=== PATIENT | male | born 1955 | race Caucasian/White ===

== ENCOUNTER 2016-10-15 12:45 | Emergency (ER) | payer OTHER ==
[~2016-10-15] VITALS: Ht 175.3 cm; Wt 100.5 kg
[2016-10-15 12:50] VITALS: Ht 175.3 cm; Wt 100.5 kg
[2016-10-15] MEDS ORDERED: TAMS-14 PO (13:19)
[2016-10-15] MEDS ORDERED: CIPR500T4 PO (13:19)
[2016-10-15] MEDS ORDERED: CIPROFLOXACIN 500 MG TAB PO ONE (13:30)
[2016-10-15 14:11] LABS: ADD UMIC YES; UR ASCORBIC ACID NEGATIVE (NEGATIVE); UR BACTERIA FEW /HPF (NONE SEEN); UR BILIRUBIN (Dip) NEGATIVE (NEGATIVE); UR BLOOD (Dip) 2+ mg/dL (NEGATIVE); UR CLARITY SLIGHTLY CLOUDY (CLEAR); UR COLOR RED (YELLOW); UR GLUCOSE (Dip) NEGATIVE (NEGATIVE); UR KETONES (Dip) NEGATIVE (NEGATIVE); UR LEUKOCYTE ESTERASE (Dip) NEGATIVE Leu/ul (NEGATIVE); UR NITRITE (Dip) NEGATIVE (NEGATIVE); UR RBC 73 /HPF (0-5); UR TOTAL PROTEIN (Dip) 2+ mg/dl (NEGATIVE); UR UROBILINOGEN (Dip) NEGATIVE (NEGATIVE); UR WBC CLUMPS FEW /HPF (NONE SEEN)
--- NOTE | 2016-10-15 14:21 | ERD ---
ER Documentation Chief Complaint Date/Time DATE: 10/15/16 TIME: 14:19 Chief Complaint urinary retention , blood in urine with abd pain since yesterday HPI Patient is a 61-year-old male with no medical problems who presents with blood in his urine and difficulty with urination. The patient says "I cannot pee". He said that he noticed blood in his urine on Saturday and then last night he could not have a urination. He was unable to urinate today either and feels like his bladder is full. He is having pain over his bladder. He has no fevers. He tried "a pill" which he believes was Flomax that he got from a friend. Upon review of old medical records this is the patient's first visit to the emergency department. He goes to a local clinic for his care. ROS All systems reviewed and are negative except as per history of present illness. Medications Home Meds Active Scripts Ciprofloxacin Hcl* (Ciprofloxacin Hcl*) 500 Mg Tablet, 500 MG PO BID for 7 Days , TAB Prov:LOUIE CHANG MD 10/15/16 Tamsulosin Hcl* (Flomax*) 0.4 Mg Cap.er.24h, 0.4 MG PO QPM, #30 CAP Prov:LOUIE CHANG MD 10/15/16 PMhx/Soc Medical and Surgical Hx: pt denies Medical Hx, pt denies Surgical Hx Hx Alcohol Use: No Hx Substance Use: No Hx Tobacco Use: No Smoking Status: Never smoker FmHx Family History: No diabetes Physical Exam Vitals Vital Signs Date Time Temp Pulse Resp B/P Pulse Ox O2 Delivery O2 Flow Rate FiO2 10/15/16 12:50 98.1 80 18 161/90 98 Physical Exam Const: Moderate distress secondary to pain. Head: Atraumatic Eyes: Normal Conjunctiva ENT: Normal External Ears, Nose and Mouth. Neck: Full range of motion..~ No meningismus. Resp: Clear to auscultation bilaterally Cardio: Regular rate and rhythm, no murmurs Abd: Soft, tenderness over the bladder with fullness Skin: No petechiae or rashes Back: No midline or flank tenderness Ext: No cyanosis, or edema Neur: Awake and alert Psych: Normal Mood and Affect Results 24 hrs Laboratory Tests Test 10/15/16 13:40 Urine Color RED Urine Clarity SLIGHTLY CLOUDY Urine pH 6.0 Urine Specific [place] 1.010 Urine Ketones NEGATIVEmg/dL Urine Nitrite NEGATIVEmg/dL Urine Bilirubin NEGATIVEmg/dL Urine Urobilinogen NEGATIVEmg/dL Urine Leukocyte Esterase NEGATIVELeu/ul Urine Microscopic RBC 73/HPF Urine Microscopic WBC 3/HPF Urine Bacteria FEW/HPF Urine Hemoglobin 2+mg/dL Urine Glucose NEGATIVEmg/dL Urine Total Protein 2+mg/dl Current Medications Medications (Trade) Dose Ordered Sig/Sacha Route PRN Reason Start Time Stop Time Status Last Admin Dose Admin Ciprofloxacin (Cipro) 500 mg ONCE ONCE PO 10/15/16 13:30 10/15/16 13:31 DC 10/15/16 13:43 Procedures/MDM Urinalysis shows hematuria and mild infection. Urine culture is pending. Patient is a 61-year-old male who presents with hematuria and urinary retention. A Herring catheter was placed and the patient feels much better. The patient will be given Cipro. I believe this is likely BPH but there is a possibility of prostate cancer so he will need follow-up with his primary doctor as well as urology. He can return for any worsening symptoms. I believe outpatient management is appropriate. He will be sent home with a leg bag. Departure Diagnosis: Primary Impression: Urine retention Additional Impression: Hematuria Condition: Fair Patient Instructions: Hematuria, Urinary Retention, Male Referrals: Your doctor JOSE HERNANDEZ MD Additional Instructions: Llame al doctor TREY y sadaf clive MICHI PARA DENTRO DE 1-2 RUSH.Dgale a la secretaria que nosotros le instruimos hacer esta michi.Avise o llame si bermeo condicin se empeora antes de la michi. Regresa aqui si peor o no mejor. LOUIE CHANG MD Oct 15, 2016 14:21
== END 2016-10-15 14:31 | disposition home or self-care (01) ==
LOC: E/R 12:45
DX: R33.9 Retention of urine, unspecified (principal); R31.9 Hematuria, unspecified
CPT/HCPCS: 51702; 81001; 87086; Z7502; Z7610

== ENCOUNTER 2016-10-16 22:35 | Emergency (ER) | payer OTHER ==
[~2016-10-16] VITALS: Ht 170.2 cm; Wt 100.0 kg
[~2016-10-16 22:35] MED LIST: CIPR500T4 PO; TAMS-14 PO
[2016-10-16 22:46] VITALS: Ht 170.2 cm; Wt 100.0 kg
--- NOTE | 2016-10-16 23:31 | ERD ---
ER Documentation Chief Complaint Date/Time DATE: 10/16/16 TIME: 23:29 Chief Complaint urine not draining in urine bag,pelvic pressure pain HPI This is a 61-year-old male who is brought in for his urine bag not draining. No fevers no chills. No nausea no vomiting. No other current complaints. Patient has Herring catheter in place ROS All systems reviewed and are negative except as per history of present illness. Medications Home Meds Active Scripts Ciprofloxacin Hcl* (Ciprofloxacin Hcl*) 500 Mg Tablet, 500 MG PO BID for 7 Days , TAB Prov:LOUIE CHANG MD 10/15/16 Tamsulosin Hcl* (Flomax*) 0.4 Mg Cap.er.24h, 0.4 MG PO QPM, #30 CAP Prov:LOUIE CHANG MD 10/15/16 Allergies Allergies: Coded Allergies: No Known Allergy (Unverified , 10/16/16) PMhx/Soc History of Surgery: No Anesthesia Reaction: No Hx Neurological Disorder: No Hx Respiratory Disorders: No Hx Cardiac Disorders: No Hx Psychiatric Problems: No Hx Miscellaneous Medical Probl: Yes (prostate problem) Hx Alcohol Use: Yes (quit 20 years ago) Hx Substance Use: No Hx Tobacco Use: Yes (quit 30 years ago) Smoking Status: Former smoker Physical Exam Vitals Vital Signs Date Time Temp Pulse Resp B/P Pulse Ox O2 Delivery O2 Flow Rate FiO2 10/16/16 22:46 97.2 81 18 138/89 97 Physical Exam Const: [] Head: Atraumatic Eyes: Normal Conjunctiva ENT: Normal External Ears, Nose and Mouth. Neck: Full range of motion..~ No meningismus. Resp: Clear to auscultation bilaterally Cardio: Regular rate and rhythm, no murmurs Abd: Soft, non tender, non distended. Normal bowel sounds Skin: No petechiae or rashes Back: No midline or flank tenderness Ext: No cyanosis, or edema Neur: Awake and alert Psych: Normal Mood and Affect Procedures/MDM Medical decision-making: Patient here for urinary retention. Herrign catheter changed out. Not draining. Patient will be discharged home on Cipro pending culture results. Follow-up with PCP per Departure Diagnosis: Primary Impression: Retention of urine Condition: Stable JULIET LANIER Oct 16, 2016 23:30
[2016-10-17 00:34] VITALS: BP 126/82; PULSE 69; RESP 22
[2016-10-17 00:59] LABS: UR BACTERIA MODERATE /HPF (NONE SEEN); UR MUCUS MODERATE /HPF (NONE SEEN); UR RBC > 182 /HPF (0-5)
[2016-10-17 01:02] LABS: ADD UMIC YES; UR ASCORBIC ACID NEGATIVE (NEGATIVE); UR BILIRUBIN (Dip) NEGATIVE (NEGATIVE); UR BLOOD (Dip) 2+ mg/dL (NEGATIVE); UR CLARITY CLOUDY (CLEAR); UR COLOR AMBER (YELLOW); UR GLUCOSE (Dip) 1+ mg/dL (NEGATIVE); UR KETONES (Dip) NEGATIVE (NEGATIVE); UR LEUKOCYTE ESTERASE (Dip) NEGATIVE Leu/ul (NEGATIVE); UR NITRITE (Dip) NEGATIVE (NEGATIVE); UR SPECIFIC GRAVITY (Dip) 1.018 (1.003-1.030); UR TOTAL PROTEIN (Dip) 1+ mg/dl (NEGATIVE); UR UROBILINOGEN (Dip) NEGATIVE (NEGATIVE)
== END 2016-10-17 00:34 | disposition home or self-care (01) ==
LOC: E/R 22:35
DX: R33.9 Retention of urine, unspecified (principal); R40.2142 Coma scale, eyes open, spontaneous, at arrival to emergency department; R40.2252 Coma scale, best verbal response, oriented, at arrival to emergency department; R40.2362 Coma scale, best motor response, obeys commands, at arrival to emergency department; Z87.891 Personal history of nicotine dependence
CPT/HCPCS: 51702; 81001; 87086; Z7502; Z7610

== ENCOUNTER 2016-10-22 23:32 | Emergency (ER) | END 2016-10-23 01:09 | disposition home or self-care (01) | DX: R33.9 Retention of urine, unspecified (principal); Z87.891 Personal history of nicotine dependence | CPT/HCPCS: 51702; Z7502 ==

== ENCOUNTER 2016-11-04 10:30 | Emergency (ER) | payer OTHER ==
[~2016-11-04] VITALS: Ht 180.3 cm; Wt 98.0 kg
[~2016-11-04 10:30] MED LIST changes: +DOCU-144 PO
[2016-11-04 10:37] VITALS: Ht 180.3 cm; Wt 98.0 kg
--- NOTE | 2016-11-04 11:07 | ERD ---
ER Documentation Chief Complaint Date/Time DATE: 11/04/16 Chief Complaint Urinary retention HPI The patient is a 61-year-old male with a history of benign prostatic hyperplasia who presents to the Emergency Department with complaint of urinary retention. The patient was initially seen in the emergency department on 2016 after onset of urinary retention and hematuria. At the time patient was noted to have a urinary tract infection and urinary retention, and therefore a Herring catheter was placed. The patient was ultimately discharged home with a prescription for ciprofloxacin and Flomax, and advised to follow-up with his primary medical provider and urologist as an outpatient. The patient returned on 10/22/2016, several hours after his Herring catheter had been removed. He had developed recurrent urinary retention, and therefore a Herring catheter was again placed. The patient followed up with his urologist (Dr. Zeke Arroyo) this past , 11/01/2016, and his Herring catheter was again removed. The patient notes no symptoms until last night, when he began to experience increased urinary hesitancy and development of urinary retention. He notes that he tried to urinate almost 20 times last night, with no significant urine production. Since, he has developed progressively worsening pressure-like sensation to the suprapubic abdomen, and urinary retention. He denies any hematuria or flank pain. Denies fevers, sweats, chills, nausea or vomiting. The patient notes that he regularly takes Flomax and Finasteride, which he was just prescribed. No other complaints at this time. ROS All systems reviewed and are negative except as per history of present illness. Medications Home Meds Active Scripts Cephalexin* (Keflex*) 500 Mg Capsule, 500 MG PO QID for 7 Days, CAP Prov:JEANNA CAMEJO PA-C 11/04/16 Docusate Sodium* (Colace*) 100 Mg Capsule, 100 MG PO TID, #30 CAP Prov:JULIET LANIER 10/23/16 Ciprofloxacin Hcl* (Ciprofloxacin Hcl*) 500 Mg Tablet, 500 MG PO BID for 7 Days , TAB Prov:LOUIE CHANG MD 10/15/16 Tamsulosin Hcl* (Flomax*) 0.4 Mg Cap.er.24h, 0.4 MG PO QPM, #30 CAP Prov:LOUIE CHANG MD 10/15/16 Allergies Allergies: Coded Allergies: No Known Allergy (Unverified , 11/04/16) PMhx/Soc History of Surgery: No Anesthesia Reaction: No Hx Neurological Disorder: No Hx Respiratory Disorders: No Hx Cardiac Disorders: No Hx Psychiatric Problems: No Hx Miscellaneous Medical Probl: Yes (prostate problem) Hx Alcohol Use: Yes (quit 20 years ago) Hx Substance Use: No Hx Tobacco Use: Yes (quit 30 years ago) Physical Exam Vitals Vital Signs Date Time Temp Pulse Resp B/P Pulse Ox O2 Delivery O2 Flow Rate FiO2 11/04/16 14:00 98.3 92 20 123/73 98 Room Air 11/04/16 10:37 97.8 99 18 130/87 97 Physical Exam GENERAL: Well-developed, well-nourished, male. Appears uncomfortable. HEENT: Head is normocephalic, atraumatic. No scleral pallor or icterus. Conjunctiva pink. Moist mucous membranes. NECK: Supple. RESPIRATORY: Lungs are clear to auscultation bilaterally. Equal breath sounds. Normal expiratory effort. CARDIOVASCULAR: Regular rate and rhythm. S1 and S2 normal. GASTROINTESTINAL: Abdomen is soft and non-distended. Palpable bladder fullness. No guarding, no rebound tenderness. Normal bowel sounds. FLANK: No CVA tenderness. BACK: No midline tenderness. No saddle region anesthesia. EXTREMITIES: No clubbing, cyanosis, or edema. Normal skin perfusion. Moving all extremities. Muscle tone is normal. No focal swelling or erythema. NEUROLOGIC: The patient is alert, awake, and oriented x 3. No focal neurologic deficits. INTEGUMENT: Skin is intact. Warm and dry. PSYCHIATRIC: Cooperative, appropriate. Result Diagram: 11/04/16 1110 11/04/16 1110 Results 24 hrs Laboratory Tests Test 11/04/16 11:10 11/04/16 12:00 White Blood Count 15.010^3/ul Red Blood Count 4.5310^6/ul Hemoglobin 14.5g/dl Hematocrit 42.4% Mean Corpuscular Volume 93.6fl Mean Corpuscular Hemoglobin 32.0pg Mean Corpuscular Hemoglobin Concent 34.2g/dl Red Cell Distribution Width 12.5% Platelet Count 60614^3/UL Mean Platelet Volume 10.6fl Neutrophils % 86.5% Lymphocytes % 6.4% Monocytes % 6.5% Eosinophils % 0.0% Basophils % 0.3% Nucleated Red Blood Cells % 0.0/100WBC Neutrophils # 13.010^3/ul Lymphocytes # 1.010^3/ul Monocytes # 1.010^3/ul Eosinophils # 0.010^3/ul Basophils # 0.010^3/ul Nucleated Red Blood Cells # 0.010^3/ul Sodium Level 136mmol/L Potassium Level 4.7mmol/L Chloride Level 95mmol/L Carbon Dioxide Level 29mmol/L Anion Gap 17 Blood Urea Nitrogen 15mg/dl Creatinine 0.83mg/dl Glucose Level 123mg/dl Calcium Level 9.0mg/dl Total Bilirubin 1.0mg/dl Direct Bilirubin 0.00mg/dl Indirect Bilirubin 1.0mg/dl Aspartate Amino Transf (AST/SGOT) 25IU/L Alanine Aminotransferase (ALT/SGPT) 33IU/L Alkaline Phosphatase 80IU/L Total Protein 7.9g/dl Albumin 4.2g/dl Globulin 3.70g/dl Albumin/Globulin Ratio 1.13 Urine Color YELLOW Urine Clarity SLIGHTLY CLOUDY Urine pH 5.0 Urine Specific [place] 1.016 Urine Ketones NEGATIVEmg/dL Urine Nitrite POSITIVEmg/dL Urine Bilirubin NEGATIVEmg/dL Urine Urobilinogen NEGATIVEmg/dL Urine Leukocyte Esterase 3+Josue/ul Urine Microscopic RBC 6/HPF Urine Microscopic WBC 103/HPF Urine Bacteria MODERATE/HPF Urine Hemoglobin 3+mg/dL Urine Glucose NEGATIVEmg/dL Urine Total Protein NEGATIVEmg/dl Current Medications Medications (Trade) Dose Ordered Sig/Sacha Route PRN Reason Start Time Stop Time Status Last Admin Dose Admin Ceftriaxone Sodium (Rocephin) 50 ml @ 100 mls/hr ONCE ONCE IVPB 11/04/16 13:30 11/04/16 13:59 DC 11/04/16 13:28 Ketorolac Tromethamine (Toradol) 15 mg ONCE STAT IV 11/04/16 13:23 11/04/16 13:24 DC 11/04/16 13:29 Procedures/MDM This is a 61-year-old male presenting to the Emergency Department with acute urinary retention, likely secondary to BPH. The patient has had history of similar episodes. He noted resolution of discomfort upon placement of the Herring catheter, with drainage of approximately 700+ cc urine. No evidence of saddle anesthesia, lower extremity numbness, weakness, paresthesias or decreased sensation. No evidence of cauda equina syndrome. Patient's symptoms likely secondary to BPH, as in the past. Urinalysis performed revealed positive nitrites, 3+ urine leukocyte esterase, 103 WBCs, consistent with urinary tract infection. Clinical presentation not consistent with acute pyelonephritis. Urine culture sent. Rocephin 1 gram administered in the ED. Otherwise, laboratory analysis with no evidence of acute kidney injury. At this time, the patient is in stable condition and therefore can be discharged home with the Herring catheter in place, a prescription for Keflex, and given strict return precautions for signs of deteriorating or worsening condition. The patient is advised to follow up with his urologist within 1-2 days for reevaluation and further management, or return to the ER sooner for any worsening symptoms. I shared my medical decision making and plan with the patient at length and in great detail, and the patient verbally understands and agrees with the plan for further observation and care as an outpatient. At the time of discharge, all questions were answered. Departure Diagnosis: Primary Impression: Urinary retention Additional Impressions: Urinary tract infection Urinary tract infection type: acute cystitis Hematuria presence: with hematuria Qualified Code: N30.01 - Acute cystitis with hematuria History of benign prostatic hyperplasia Condition: Stable Patient Instructions: Understanding Urinary Tract Infections (UTIs), Urinary Retention, Male Additional Instructions: Llame al doctor MAANA y sadaf clive MICHI PARA DENTRO DE 1-2 RUSH.Dgale a la secretaria que nosotros le instruimos hacer esta michi.Avise o llame si bermeo condicin se empeora antes de la michi. Regresa aqui si peor o no mejor. JEANNA CAMEJO PA-C Nov 04, 2016 11:07
[2016-11-04 11:47] LABS: BASOPHILS % 0.3 % (0.0-2.0); HEMATOCRIT 42.4 % (42.0-52.0); HEMOGLOBIN 14.5 g/dl (14.0-18.0); LYMPHOCYTES % 6.4 % (15.0-51.0); MEAN CORPUSCULAR HGB CONC 34.2 g/dl (32.0-37.0); MEAN CORPUSCULAR VOLUME 93.6 fl (82.0-101.0); MEAN PLATELET VOLUME 10.6 fl (7.4-10.4); MONOCYTES % 6.5 % (0.0-11.0); NEUTROPHILS % 86.5 % (39.0-77.0); PLATELET COUNT 239 10^3/UL (140-415); RED BLOOD COUNT 4.53 10^6/ul (4.70-6.10); RED CELL DISTRIBUTION WIDTH 12.5 % (11.5-14.5)
[2016-11-04 12:04] LABS: ALBUMIN 4.2 g/dl (3.3-4.9); ALBUMIN/GLOBULIN RATIO 1.13; CREATININE 0.83 mg/dl (0.61-1.24); POTASSIUM 4.7 mmol/L (3.5-5.1); TOTAL PROTEIN 7.9 g/dl (6.1-8.1)
[2016-11-04 13:12] LABS: ADD UMIC YES; UR ASCORBIC ACID 40 mg/dL (NEGATIVE); UR BACTERIA MODERATE /HPF (NONE SEEN); UR BILIRUBIN (Dip) NEGATIVE (NEGATIVE); UR BLOOD (Dip) 3+ mg/dL (NEGATIVE); UR CLARITY SLIGHTLY CLOUDY (CLEAR); UR COLOR YELLOW (YELLOW); UR GLUCOSE (Dip) NEGATIVE (NEGATIVE); UR KETONES (Dip) NEGATIVE (NEGATIVE); UR LEUKOCYTE ESTERASE (Dip) 3+ Leu/ul (NEGATIVE); UR NITRITE (Dip) POSITIVE (NEGATIVE); UR RBC 6 /HPF (0-5); UR SPECIFIC GRAVITY (Dip) 1.016 (1.003-1.030); UR TOTAL PROTEIN (Dip) NEGATIVE (NEGATIVE); UR UROBILINOGEN (Dip) NEGATIVE (NEGATIVE); UR WBC CLUMPS FEW /HPF (NONE SEEN)
[2016-11-04] MEDS ORDERED: CEPH-443 PO (13:20)
[2016-11-04] MEDS ORDERED: KETOROLAC 15 MG INJ IV STA (13:23)
[2016-11-04] MEDS ORDERED: CEFTRIAXONE 1 GM/50 ML (PMX) 50 ML IVPB ONE (13:30)
[2016-11-04 14:00] VITALS: BP 123/73; PULSE 92; RESP 20; TEMP 98.3
[2016-11-04] MEDS ORDERED: CIPR500T4 PO (23:04)
== END 2016-11-04 14:09 | disposition home or self-care (01) ==
LOC: FTE 10:30
DX: R33.9 Retention of urine, unspecified (principal); N30.01 Acute cystitis with hematuria; Z87.438 Personal history of other diseases of male genital organs; Z87.891 Personal history of nicotine dependence
CPT/HCPCS: 36415; 51702; 80053; 81001; 85025; 87086; 96374; 96375; J0696; J1885; Z7502

== ENCOUNTER 2016-11-04 21:55 | Emergency (ER) | payer OTHER ==
[~2016-11-04] VITALS: Ht 182.9 cm; Wt 97.5 kg
[~2016-11-04 21:55] MED LIST changes: +CEPH-443 PO
[2016-11-04 22:12] VITALS: Ht 182.9 cm; Wt 97.5 kg
[2016-11-04 22:50] LABS: URINE BLOOD (Dip) POC 3+ (NEGATIVE)
--- NOTE | 2016-11-04 22:55 | ERD ---
ER Documentation Chief Complaint Date/Time DATE: 11/04/16 TIME: 22:54 Chief Complaint blood at tip of penis at the side of catheter insertion site HPI 61-year-old male here for blood activities pedis at the side of the catheter insertion for urinary retention. Denies fevers or chills. Does complain of blood in urine. No fevers no chills no nausea no vomiting. No other current complaints. Herring placed last night. ROS All systems reviewed and are negative except as per history of present illness. Medications Home Meds Active Scripts Cephalexin* (Keflex*) 500 Mg Capsule, 500 MG PO QID for 7 Days, CAP Prov:JEANNA CAMEJO PA-C 11/04/16 Docusate Sodium* (Colace*) 100 Mg Capsule, 100 MG PO TID, #30 CAP Prov:JULIET LANIER 10/23/16 Ciprofloxacin Hcl* (Ciprofloxacin Hcl*) 500 Mg Tablet, 500 MG PO BID for 7 Days , TAB Prov:LOUIE CHANG MD 10/15/16 Tamsulosin Hcl* (Flomax*) 0.4 Mg Cap.er.24h, 0.4 MG PO QPM, #30 CAP Prov:LOUIE CHANG MD 10/15/16 Allergies Allergies: Coded Allergies: No Known Allergy (Unverified , 11/04/16) PMhx/Soc History of Surgery: No Anesthesia Reaction: No Hx Neurological Disorder: No Hx Respiratory Disorders: No Hx Cardiac Disorders: No Hx Psychiatric Problems: No Hx Miscellaneous Medical Probl: Yes (prostate problem) Hx Alcohol Use: Yes (quit 20 years ago) Hx Substance Use: No Hx Tobacco Use: Yes (quit 30 years ago) Smoking Status: Never smoker Physical Exam Vitals Vital Signs Date Time Temp Pulse Resp B/P Pulse Ox O2 Delivery O2 Flow Rate FiO2 11/04/16 22:12 97.8 92 18 132/77 97 Physical Exam Const: [] Head: Atraumatic Eyes: Normal Conjunctiva ENT: Normal External Ears, Nose and Mouth. Neck: Full range of motion..~ No meningismus. Resp: Clear to auscultation bilaterally Cardio: Regular rate and rhythm, no murmurs Abd: Soft, non tender, non distended. Normal bowel sounds Skin: No petechiae or rashes Back: No midline or flank tenderness Ext: No cyanosis, or edema Neur: Awake and alert Psych: Normal Mood and Affect Procedures/MDM Medical decision-makin-year-old male with urinary retention and likely infection. At this point clinically stable. Patient will be discharged home on ciprofloxacin and tamsulosin pending culture results Departure Diagnosis: Primary Impression: Urinary retention Additional Impression: UTI (urinary tract infection) Urinary tract infection type: acute cystitis Hematuria presence: without hematuria Qualified Code: N30.00 - Acute cystitis without hematuria Condition: Stable JULIET LANIER Nov 04, 2016 22:55
[2016-11-04] MEDS ORDERED: CEFTRIAXONE 1 GM INJ IM ONE (23:00)
[2016-11-04] MEDS ORDERED: CIPR500T4 PO (23:04)
== END 2016-11-04 23:31 | disposition home or self-care (01) ==
LOC: E/R 21:55
DX: R33.9 Retention of urine, unspecified (principal); N30.00 Acute cystitis without hematuria; Z87.891 Personal history of nicotine dependence
CPT/HCPCS: 51702; 81003; 96372; J0696; Z7502; Z7610

== ENCOUNTER 2016-11-06 18:10 | Emergency (ER) | payer OTHER ==
[~2016-11-06] VITALS: Ht 172.7 cm; Wt 97.5 kg
[2016-11-06 18:12] VITALS: Ht 172.7 cm; Wt 97.5 kg
[2016-11-06] MEDS ORDERED: KETOROLAC 15 MG INJ IM STA (18:35)
--- NOTE | 2016-11-06 18:42 | ERA ---
ER Documentation Chief Complaint Date/Time DATE: 11/06/16 TIME: 18:37 Chief Complaint bilateral testicular pain since yesterday HPI This is a 61-year-old male presenting with a chief complaint of scrotal pain 1 day. Patient had a catheter placed on Saturday. I had a scheduled appointment with urologist today but the urologist was not there and was told if he was having pain to go to the emergency department. Patient is on antibiotics. Patient's urinary catheter was originally placed for urinary retention. Patient 's history. Pain is worse with laying and is relieved with slowly walking. Patient has taken Tylenol with little relief. Patient denies fever, chills, current dysuria, pruritus. Patient has no other complaints and describes no other associated manifestations. Vaccination status up-to-date and denies any recent travel. ROS All systems reviewed and are negative except as per history of present illness. Medications Home Meds Active Scripts Ciprofloxacin Hcl* (Ciprofloxacin Hcl*) 500 Mg Tablet, 500 MG PO BID for 14 Days , TAB Prov:FLACA DICKEY PA-C 11/06/16 Ciprofloxacin Hcl* (Ciprofloxacin Hcl*) 500 Mg Tablet, 500 MG PO BID for 14 Days , TAB Prov:JULIET LANIER S. 11/04/16 Cephalexin* (Keflex*) 500 Mg Capsule, 500 MG PO QID for 7 Days, CAP Prov:JEANNA CAMEJO PA-C 11/04/16 Docusate Sodium* (Colace*) 100 Mg Capsule, 100 MG PO TID, #30 CAP Prov:JULIET LANIER S. 10/23/16 Ciprofloxacin Hcl* (Ciprofloxacin Hcl*) 500 Mg Tablet, 500 MG PO BID for 7 Days , TAB Prov:LOUIE CHANG MD 10/15/16 Tamsulosin Hcl* (Flomax*) 0.4 Mg Cap.er.24h, 0.4 MG PO QPM, #30 CAP Prov:LOUIE CHANG MD 10/15/16 Allergies Allergies: Coded Allergies: No Known Allergy (Unverified , 11/04/16) PMhx/Soc History of Surgery: No Anesthesia Reaction: No Hx Neurological Disorder: No Hx Respiratory Disorders: No Hx Cardiac Disorders: No Hx Psychiatric Problems: No Hx Miscellaneous Medical Probl: Yes (prostate problem) Hx Alcohol Use: Yes (quit 20 years ago) Hx Substance Use: No Hx Tobacco Use: Yes (quit 30 years ago) Physical Exam Vitals Vital Signs Date Time Temp Pulse Resp B/P Pulse Ox O2 Delivery O2 Flow Rate FiO2 11/06/16 18:12 100.3 98 22 122/78 96 Physical Exam Const: Overweight 61-year-old male in no acute distress he was lying down in the gurney on initial presentation Head: Atraumatic Eyes: Normal Conjunctiva ENT: Normal External Ears, Nose and Mouth. Neck: Full range of motion..~ No meningismus. Resp: Clear to auscultation bilaterally Cardio: Regular rate and rhythm, no murmurs Abd: Soft, non tender, non distended. Normal bowel sounds Skin: No petechiae or rashes Back: No midline or flank tenderness Ext: No cyanosis, or edema Neur: Awake and alert Psych: Normal Mood and Affect : Erythematous, non-translucent, tender scrotum. Negative phren sign. Positive cremasteric reflex. Results 24 hrs Laboratory Tests Test 11/06/16 19:00 Urine Color YELLOW Urine Clarity SLIGHTLY CLOUDY Urine pH 5.0 Urine Specific [place] 1.009 Urine Ketones NEGATIVEmg/dL Urine Nitrite NEGATIVEmg/dL Urine Bilirubin NEGATIVEmg/dL Urine Urobilinogen NEGATIVEmg/dL Urine Leukocyte Esterase 2+Josue/ul Urine Microscopic RBC 5/HPF Urine Microscopic WBC 19/HPF Urine Bacteria FEW/HPF Urine Mucus FEW/HPF Urine Hemoglobin 3+mg/dL Urine Glucose NEGATIVEmg/dL Urine Total Protein 1+mg/dl Current Medications Medications (Trade) Dose Ordered Sig/Sacha Route PRN Reason Start Time Stop Time Status Last Admin Dose Admin Ketorolac Tromethamine (Toradol) 15 mg ONCE STAT IM 11/06/16 18:35 11/06/16 18:37 DC 11/06/16 19:01 Procedures/MDM This is a 7-year-old male who had a catheter placed 2 days ago and has been having bilateral scrotal pain today. Physical exam showed a negative phren sign and positive cremasteric reflex. Ultrasound however was still ordered to rule out torsion and other anatomical pathologies. Patient is on ciprofloxacin. I have little suspicion palpation of scrotum was not consistent with appreciable varicocele. Scrotum was translucent and not consistent with hydrocele. Patient was given 15 mg of ketorolac in the ED with moderate relief of symptoms. Other pain medications was told to more adequate diagnosis was confirmed. Ultrasound was read by the radiologist given the following impression: 1. Sonographic findings suggestive of bilateral epididymitis as well as left orchitis as detailed above. 2. Small right hydrocele. 3. Bilateral varicoceles. Spoke to my attending Dr. Chang about this case was recommended continuation of antibiotics and follow-up with urologist within the next 1-2 days. Patient has been recommended to take ibuprofen for the pain as well as use of tight underwear or jockstrap. I have spoke further with the patient regarding their condition and future management. They have verbally responded that they understand their status and treatment plan. The patients vitals are stable, and their current condition is appropriate for discharge. The patient will be given discharge instructions with return precautions. Departure Diagnosis: Primary Impression: Orchitis and epididymitis Additional Impression: Epididymitis Condition: Stable Additional Instructions: Follow-up with urologist within the next 1-2 days. Return the the emergency department immediately if symptoms worsen or change. If you have any questions regarding medications, ask your pharmacist or us before you leave. If any adverse reactions occur while taking your medications, discontinue the treatment and return to the emergency department immediately. Take your medications as directed, and complete the entire course of treatment. FLACA DICKEY PA-C Nov 06, 2016 18:42
--- NOTE | 2016-11-06 19:19 | RADRPT ---
PROCEDURE: Scrotal ultrasound CLINICAL INDICATION: Testicular pain TECHNIQUE: Multiple farmer scale, color Doppler, and spectral Doppler images of the scrotum were obt ained. Images were reviewed on a high-resolution PACS workstation. COMPARISON: None FINDINGS: The right testes measures 3.7 x 2.5 x 3.2 cm and the left testes measures 4 x 2.3 x 2.8 cm. The righ t testes is normal in size and echogenicity with normal color flow. Normal echogenicity in the left testes is seen. Increased color flow in the left testes is identified. The right epididymis measure s 14 x 6.4 mm and the left epididymis measures 14.4 mm. The epididymis bilaterally are heterogeneou s with increased color flow. Bilateral varicoceles are seen. A small right hydrocele is seen. IMPRESSION: 1. Sonographic findings suggestive of bilateral epididymitis as well as left orchitis as detailed a donavon. 2. Small right hydrocele. 3. Bilateral varicoceles. RPTAT: HPNM Physician Selvin Date Time Electronically viewed and signed by Physician Selvin on 11/06/2016 19:19 /
[2016-11-06 19:27] LABS: ADD UMIC YES; UR ASCORBIC ACID NEGATIVE (NEGATIVE); UR BACTERIA FEW /HPF (NONE SEEN); UR BILIRUBIN (Dip) NEGATIVE (NEGATIVE); UR BLOOD (Dip) 3+ mg/dL (NEGATIVE); UR CLARITY SLIGHTLY CLOUDY (CLEAR); UR COLOR YELLOW (YELLOW); UR GLUCOSE (Dip) NEGATIVE (NEGATIVE); UR KETONES (Dip) NEGATIVE (NEGATIVE); UR LEUKOCYTE ESTERASE (Dip) 2+ Leu/ul (NEGATIVE); UR MUCUS FEW /HPF (NONE SEEN); UR NITRITE (Dip) NEGATIVE (NEGATIVE); UR RBC 5 /HPF (0-5); UR SPECIFIC GRAVITY (Dip) 1.009 (1.003-1.030); UR TOTAL PROTEIN (Dip) 1+ mg/dl (NEGATIVE); UR UROBILINOGEN (Dip) NEGATIVE (NEGATIVE)
[2016-11-06] MEDS ORDERED: CIPR500T4 PO (20:53)
== END 2016-11-06 21:05 | disposition home or self-care (01) ==
LOC: FTE 18:10
DX: N45.3 Epididymo-orchitis (principal); N50.812 Left testicular pain; Z87.891 Personal history of nicotine dependence
CPT/HCPCS: 76870; 81001; 87086; 96372; Z7502; Z7610; J1885

== ENCOUNTER 2018-01-22 18:10 | Emergency (ER) | END 2018-01-22 21:39 | disposition home or self-care (01) ==

== ENCOUNTER 2018-01-23 23:53 | Inpatient (IN) | END 2018-01-25 16:00 | disposition home or self-care (01) | DRG 713 ==

== ENCOUNTER 2018-01-29 16:22 | Emergency (ER) | END 2018-01-29 20:09 | disposition home or self-care (01) ==

== ENCOUNTER 2018-02-13 19:23 | Emergency (ER) | END 2018-02-14 00:45 | disposition home or self-care (01) ==

== ENCOUNTER 2018-10-08 19:36 | Emergency (ER) | payer MEDICAID, OTHER ==
[~2018-10-08] VITALS: Ht 170.2 cm; Wt 104.4 kg
[~2018-10-08 19:36] MED LIST changes: -CIPR500T4 PO; -DOCU-144 PO; -TAMS-14 PO
[2018-10-08 19:48] VITALS: Ht 170.2 cm; Wt 104.4 kg
--- NOTE | 2018-10-08 23:12 | ERD ---
ER Documentation Chief Complaint Chief Complaint hematuria w/upper ab pain x 3 days HPI 63-year-old male with history of prostatic hypertrophy status post remote TURP presents to the ED complaining of several day history of mild, crampy, diffuse, nonradiating upper abdominal pain and today had an episode of hematuria which has since resolved. Currently is pain-free. Denies chest pain or palpitations. No shortness of breath or cough. Denies dysuria, polyuria flank pain. No fevers or chills. ROS All systems reviewed and are negative except as per history of present illness. Medications Home Meds Discontinued Scripts Cephalexin* (Keflex*) 500 Mg Capsule, 500 MG PO BID for 10 Days, CAP Prov:BRAN PLAZA MD 02/14/18 Allergies Allergies: Coded Allergies: No Known Allergy (Unverified , 10/08/18) PMhx/Soc Medical and Surgical Hx: pt denies Surgical Hx History of Surgery: No Anesthesia Reaction: No Hx Neurological Disorder: No Hx Respiratory Disorders: No Hx Cardiac Disorders: No Hx Psychiatric Problems: No Hx Miscellaneous Medical Probl: Yes (PROSTATE PROBLEM ) Hx Alcohol Use: Yes Hx Substance Use: No Hx Tobacco Use: No Smoking Status: Never smoker FmHx No stroke or cancer Physical Exam Vitals Vital Signs Date Temp Pulse Resp B/P (MAP) Pulse Ox O2 O2 Flow FiO2 Time Delivery Rate 10/08/18 74 22 131/99 97 Room Air 22:00 (110) 10/08/18 86 20 146/101 98 Room Air 19:52 (116) 10/08/18 98.8 74 20 167/98 97 19:48 (121) Physical Exam Const: No acute distress Head: Atraumatic Eyes: Normal Conjunctiva ENT: Normal External Ears, Nose and Mouth. Neck: Full range of motion. No meningismus. Resp: Clear to auscultation bilaterally Cardio: Regular rate and rhythm, no murmurs Abd: Soft, non tender, non distended. Normal bowel sounds Skin: No petechiae or rashes Back: No midline or flank tenderness Ext: No cyanosis, or edema Neur: Awake and alert Psych: Normal Mood and Affect Result Diagram: 10/08/18200310/08/182003 Results 24 hrs Laboratory Tests Test 10/08/18 20:04 White Blood Count 7.4 10^3/ul Red Blood Count 5.13 10^6/ul Hemoglobin 16.1 g/dl Hematocrit 46.9 % Mean Corpuscular Volume 91.4 fl Mean Corpuscular Hemoglobin 31.4 pg Mean Corpuscular Hemoglobin Concent 34.3 g/dl Red Cell Distribution Width 12.0 % Platelet Count 248 10^3/UL Mean Platelet Volume 10.7 fl Immature Granulocytes % 0.100 % Neutrophils % 64.6 % Lymphocytes % 25.0 % Monocytes % 8.4 % Eosinophils % 1.2 % Basophils % 0.7 % Nucleated Red Blood Cells % 0.0 /100WBC Immature Granulocytes # 0.010 10^3/ul Neutrophils # 4.8 10^3/ul Lymphocytes # 1.9 10^3/ul Monocytes # 0.6 10^3/ul Eosinophils # 0.1 10^3/ul Basophils # 0.1 10^3/ul Nucleated Red Blood Cells # 0.0 10^3/ul Urine Color STRAW Urine Clarity CLEAR Urine pH 6.0 Urine Specific [place] 1.010 Urine Ketones NEGATIVE mg/dL Urine Nitrite NEGATIVE mg/dL Urine Bilirubin NEGATIVE mg/dL Urine Urobilinogen NEGATIVE mg/dL Urine Leukocyte Esterase NEGATIVE Josue/ul Urine Microscopic RBC 1 /HPF Urine Microscopic WBC 1 /HPF Urine Hemoglobin 1+ mg/dL Urine Glucose NEGATIVE mg/dL Urine Total Protein NEGATIVE mg/dl Sodium Level 142 mmol/L Potassium Level 4.4 mmol/L Chloride Level 103 mmol/L Carbon Dioxide Level 29 mmol/L Anion Gap 10 Blood Urea Nitrogen 18 mg/dl Creatinine 0.73 mg/dl Est Glomerular Filtrat Rate mL/min > 60 mL/min Glucose Level 99 mg/dl Calcium Level 9.3 mg/dl Total Bilirubin 0.9 mg/dl Direct Bilirubin 0.00 mg/dl Indirect Bilirubin 0.9 mg/dl Aspartate Amino Transf (AST/SGOT) 55 IU/L Alanine Aminotransferase (ALT/SGPT) 33 IU/L Alkaline Phosphatase 87 IU/L Total Protein 7.5 g/dl Albumin 4.2 g/dl Globulin 3.30 g/dl Albumin/Globulin Ratio 1.27 Lipase 70 U/L Procedures/MDM DOCUMENTS REVIEWED: ED nurse, prior records IMAGING: PROCEDURE: CT abdomen and pelvis without contrast. CLINICAL INDICATION: Abdominal pain. Hematuria. TECHNIQUE: CT scan of the abdomen and pelvis without oral contrast was performed and is reconstructed at 2.5 mm contiguous axial intervals from the dome of the diaphragm to the inferior pubic rami.. The patient was scanned without intravenous contrast. Sagittal and coronal reformatted images were obtained from the axial source images. The calculated radiation dose measures 1428 mGy centimeters. The CTDI measures 21 mGy. Individualized dose optimization technique was used for the performance of this exam. This included 1. Automated exposure control. 2. Adjustment of the mA and / or kV according to the patient's size. 3. Use of iterative reconstructed technique. DICOM images are available. COMPARISON: CT abdomen pelvis January 23, 2018 FINDINGS: The lung bases are clear of any infiltrate or nodule. No effusion is seen. The liver is of normal size, contour and attenuation with no solid mass or ductal dilatation. No gallstones are visualized. No splenic, adrenal or pancreatic abnormalities present. Kidneys are of normal size and contour. No hydronephrosis, calculus or mass Is seen. Ureters are of normal course and caliber with no stone. No bladder mass or stone is present. prostate is enlarged. There is questionable invasion of the base of the urinary bladder. Noted are bilateral inguinal hernias containing fat. There is no aneurysm. No adenopathy is present. No bowel mass or obstruction is present. The appendix is normal. No phlegmon, ascites or pneumoperitoneum is visualized. The osseous structures are intact. IMPRESSION: No evidence of urolithiasis, obstructive uropathy, diverticulitis or appendicitis. Enlarged prostate. Correlation with PSA is suggested. Question invasion base urinary bladder. Tiny hepatic cyst. .Tal Vizcaino MD, Date Time Electronically viewed and signed by .Tal Vizcaino MD, on 10/08/2018 22:38 .A/ [employer]-year-old male with a history of prostatic hypertrophy status post remote TURP presents to the ED complaining of abdominal pain and hematuria which has since resolved. CBC negative for anemia, leukocytosis or thrombocytopenia. Chemistry reveals no renal insufficiency or electrolyte abnormalities. Urinalysis significant for 1 WBC and 1 RBC per high- power field. CT of the abdomen pelvis without contrast performed to evaluate for obstructive uropathy, abdominal aortic aneurysm, bowel obstruction, appendic itis and cholecystitis unremarkable. Symptoms resolved and patient asymptomatic. Stable for discharge with precautionary instructions and outpatient follow-up as counseled. Counseled patient and family regarding diagnostic workup, diagnosis and need for followup. Understands to return to ED if symptoms recur, worsen or any other concerns. Departure Diagnosis: Primary Impression: Acute bilateral upper abdominal pain Additional Impression: Hematuria Hematuria type: unspecified type Qualified Codes: R31.9 - Hematuria, unspecified Condition: Stable MARY CARMEN COYLE MD Oct 08, 2018 23:12
[2018-10-08 23:57] VITALS: BP 133/97; PULSE 65; RESP 22
== END 2018-10-08 23:57 | disposition home or self-care (01) ==
LOC: E/R 19:36
DX: R10.10 Upper abdominal pain, unspecified (principal); R31.9 Hematuria, unspecified
CPT/HCPCS: 74176; 80053; 81001; 83690; 85025; Z7502